=== PATIENT | female | born 1980 | race Two or more races ===

== ENCOUNTER 2017-04-04 13:14 | Emergency (ER) | payer BC ==
[2017-04-04] MEDS ORDERED: DEXAMETHASONE 10 MG/ML VIAL IVP ONE (13:24)
[2017-04-04] MEDS ORDERED: NS 1,000 ML IV ONE (13:24)
[2017-04-04] MEDS ORDERED: KETOROLAC 30 MG/1 ML SDV IVP ONE (13:24)
[2017-04-04] MEDS ORDERED: METOCLOPRAMIDE 10 MG/2 ML VIAL IVP ONE (13:24)
[2017-04-04 13:27] VITALS: RESP 18; TEMP 98; O2SAT 97
--- NOTE | 2017-04-04 13:49 | EDPHY ---
H & P Stated Complaint: c/o Migraine ALLISON since 07 Time Seen by Provider: 04/04/17 13:20 HPI/ROS: This patient reports gradual onset of headache at 7:00 a.m. this morning initially bifrontal in location now more prominent in the occiput, throbbing in nature, 8/10 intensity and worse with movement. This headache feels similar to prior migraine headaches. She has associated nausea. She also reports photophobia. She took a 1000 mg of Tylenol at 7:00 a.m. without significant improvement and notes no other exacerbating or alleviating factors. Her brought her in by private vehicle for further evaluation. ROS: No fevers or chills. HEENT: No URI symptoms. No sinus pain. No change in hearing. No sore throat. Neuro: No numbness tingling or focal weakness. She does report slight blurring of her vision which is also happen with prior migraines. No recent head trauma. Pulmonary: No complaints Cardiovascular: No complaints GI: Nausea but no vomiting. No abdominal pain : No complaints Integumentary: No skin rash 10 point ROS is otherwise negative. Source: Patient, Family Exam Limitations: Language barrier (The patient is [place]-speaking only but her translates) - Personal History LMP (Females 10-55): 1-7 Days Ago Current Tetanus Diphtheria and Acellular Pertussis (TDAP): Yes - Medical/Surgical History PMH: Migraine headaches with normal CT of the head here in 2016 Other PMH: denies - Social History Smoking Status: Never smoked Drug Use: None - Physical Exam Exam: Physical exam: Vital signs are normal General: Patient is in no acute distress. HEENT: Is no external evidence of trauma on exam. Nose atraumatic. Ears: Clear bilaterally with no hemotympanum. Oropharynx: No dental trauma or malocclusion. No intraoral lacerations. Eyes: Pupils are equal and reactive to light. Extraocular motions are intact. Optic fundi: Clear with no papilledema or hemorrhage. Lungs: Clear to auscultation bilaterally Neck: Supple no meningismus. Cardiac: Regular rate and rhythm no murmur gallop or rub. Abdomen: Soft nontender no organomegaly Neuro: GCS of 15. Cranial nerves II through XII intact. Cerebellar exam is normal as judged by symmetric rapid hand movements bilaterally. No pronator drift. No sensory or motor deficits are appreciated. Initial differential diagnosis: Migraine, tension headache, DELIVERER OUTSIDE lesion, intracranial bleed, sinusitis Constitutional: Initial Vital Signs Temperature (C) 36.6 C 04/04/17 13:24 Heart Rate 56 L 04/04/17 13:24 Respiratory Rate 18 04/04/17 13:24 Blood Pressure 139/94 H 04/04/17 13:24 O2 Sat (%) 97 04/04/17 13:24 O2 Delivery Mode Room Air Allergies/Adverse Reactions: No Known Allergies Allergy (Unverified 06/02/16 17:54) Home Medications: Medication Instructions Recorded Acet/Caffeine/Buta Fioricet 1 each PO Q6 #15 tab 06/02/16 [Fioricet (*)] Ondansetron Odt [Zofran Odt] 4 - 8 mg PO Q4PRN PRN #4 tab 04/04/17 SUMAtriptan [Imitrex 50 MG (RX)] 50 - 100 mg PO Q2H PRN #6 tab 04/04/17 Medical Decision Making ED Course/Re-evaluation: IV normal saline bolus Reglan, Benadryl, Toradol, Decadron IV At 2:34 p.m. on recheck the patient's pain has resolved. She feels well. Her visual blurring has resolved as well. She feels comfortable and requests to go home. Discussion: Given the patient's resolution of symptoms with migraine specific medications and lack of any neuro findings I do not think she has DELIVERER OUTSIDE infection , intracranial bleed or other the patient understands that she needs to return emergency department if she should have any significant recurrence despite medication plan of Imitrex ibuprofen Zofran for home. She will follow up with primary care physician - Data Points Medications Given: Discontinued Medications Dexamethasone (Decadron Injection) 10 mg IVP EDNOW ONE Stop: 04/04/17 13:25 Last Admin: 04/04/17 13:57 Dose: 10 mg Diphenhydramine HCl (Benadryl Injection) 25 mg IVP EDNOW ONE Stop: 04/04/17 13:25 Last Admin: 04/04/17 13:57 Dose: 25 mg Sodium Chloride (Ns) 1,000 mls @ 0 mls/hr IV ONCE ONE; Wide Open PRN Reason: Protocol Stop: 04/04/17 13:25 Last Admin: 04/04/17 13:40 Dose: 1,000 mls Ketorolac Tromethamine (Toradol) 30 mg IVP EDNOW ONE Stop: 04/04/17 13:25 Last Admin: 04/04/17 13:57 Dose: 30 mg Metoclopramide HCl (Reglan Injection) 10 mg IVP EDNOW ONE Stop: 04/04/17 13:25 Last Admin: 04/04/17 13:56 Dose: 10 mg Departure - Departure Disposition: Home, Routine, Self-Care Clinical Impression: Migraine headache Qualifiers: Migraine type: without aura Status migrainosus presence: without status migrainosus Intractability: not intractable Qualified Code(s): G43.009 - Migraine without aura, not intractable, without status migrainosus Condition: Good Instructions: Migraine Headache (ED) Additional Instructions: Diagnosis: Migraine headache Plan - Home to rest. Drink plenty fluids If you have recurrence of migraine-take ibuprofen-600 mg p. o., and Imitrex as prescribed. Zofran for nausea vomiting if needed Return for any significant worsening despite treatment plan Follow up with primary care physician for any ongoing symptoms. Referrals: [facility] [Other] - As per Instructions Prescriptions: Ondansetron Odt [Zofran Odt] 4 - 8 mg PO Q4PRN PRN #4 tab PRN Reason: Vomiting SUMAtriptan [Imitrex 50 MG (RX)] 50 - 100 mg PO Q2H PRN #6 tab PRN Reason: migraine
[2017-04-04 14:47] VITALS: BP 139/88; PULSE 62
== END 2017-04-04 14:44 | disposition home or self-care (01) ==
LOC: CED 13:14
DX: G43.009 Migraine without aura, not intractable, without status migrainosus (principal); E86.9 Volume depletion, unspecified
CPT/HCPCS: 96374; J1100; J1200; J1885; J2765

== ENCOUNTER 2017-10-27 20:04 | Emergency (ER) | payer BC ==
[2017-10-27] MEDS ORDERED: NS 1,000 ML IV ONE (20:28)
[2017-10-27] MEDS ORDERED: KETOROLAC 30 MG/1 ML SDV IVP ONE (20:28)
[2017-10-27] MEDS ORDERED: METOCLOPRAMIDE 10 MG/2 ML VIAL IVP ONE (20:28)
[2017-10-27] MEDS ORDERED: ACETAMINOPHEN 325 MG TAB PO ONE (20:28)
--- NOTE | 2017-10-27 21:35 | EDPHY ---
H & P Stated Complaint: Migraine Time Seen by Provider: 10/27/17 20:19 HPI/ROS: This patient developed onset of headache last night gradual in onset bilateral throbbing in nature occipital more than frontal steadily increasing in intensity. She took 400 mg of ibuprofen at 4:30 p.m. Without relief. She has tried Imitrex in the past with some improvement but is out of Imitrex and reports that the last time she used it did not work as well. She has associated photophobia and hyperacusis. She reports associated nausea but no vomiting. Her headache worsens with movement. This headache feels similar to prior migraines. She has associated scintillating scotoma. Her drove her here by private vehicle for further evaluation. ROS: No fevers or chills. No other constitutional symptoms HEENT: No URI symptoms. No sinus pain. No sore throat or ear pain. Neuro: No focal numbness tingling or weakness. Other symptoms as per HPI. No recent head injury. Pulmonary: No shortness of breath or cough Cardiovascular: No lightheadedness GI: Nausea but no vomiting. No abdominal pain. 7 point ROS is otherwise negative Source: Patient, Family, RN/MD Exam Limitations: Language barrier (Patient is Citizen [place]-speaking only but our nurse Courtney speaks [place] and the patient's spouse also speaks [place]) - Personal History LMP (Females 10-55): Now Current Tetanus/Diphtheria Vaccine: Yes Current Tetanus Diphtheria and Acellular Pertussis (TDAP): Yes - Medical/Surgical History Hx Asthma: No Hx Chronic Respiratory Disease: No Hx Diabetes: No Hx Cardiac Disease: No Hx Renal Disease: No Hx Cirrhosis: No Hx Alcoholism: No Hx HIV/AIDS: No Hx Splenectomy or Spleen Trauma: No Other PMH: migraines - Family History Significant Family History: No pertinent family hx - Social History Smoking Status: Never smoked Alcohol Use: None Drug Use: None - Physical Exam Exam: Physical exam: Vital signs are normal General: Patient is in no acute distress. HEENT: Is no external evidence of trauma on exam. Eyes: Pupils are equal and reactive to light. Extraocular motions are intact. Optic fundi: Clear with no papilledema or hemorrhage. Nose atraumatic. Ears: Clear bilaterally with no hemotympanum. Oropharynx: No dental trauma or malocclusion. No intraoral lacerations. Eyes: Pupils are equal and reactive to light. Extraocular motions are intact. Optic fundi: Clear with no papilledema or hemorrhage. Lungs: Clear to auscultation bilaterally Neck: Supple no meningismus. Cardiac: Regular rate and rhythm no murmur gallop or rub. Abdomen: Soft nontender no organomegaly Neuro: GCS of 15. Cranial nerves II through XII intact. Cerebellar exam is normal as judged by symmetric rapid hand movements bilaterally. No pronator drift. No sensory or motor deficits are appreciated. Initial differential diagnosis: Migraine, tension headache, EGG SORTER lesion, intracranial bleed Constitutional: Initial Vital Signs Temperature (C) 36.8 C 10/27/17 20:31 Heart Rate 60 10/27/17 20:31 Respiratory Rate 20 10/27/17 20:31 Blood Pressure 146/97 H 10/27/17 20:31 O2 Sat (%) 96 10/27/17 20:31 O2 Delivery Mode Room Air Allergies/Adverse Reactions: No Known Allergies Allergy (Verified 10/27/17 20:29) Home Medications: Medication Instructions Recorded Acet/Caffeine/Buta Fioricet 1 each PO Q6 #15 tab 06/02/16 [Fioricet (*)] Ondansetron Odt [Zofran Odt] 4 - 8 mg PO Q4PRN PRN #4 tab 04/04/17 SUMAtriptan [Imitrex 50 MG (RX)] 50 - 100 mg PO Q2H PRN #6 tab 04/04/17 Rizatriptan Benzoate [Maxalt] 10 mg PO Q2 #9 tablet 10/27/17 Medical Decision Making ED Course/Re-evaluation: IV normal saline bolus Toradol 15 mg, Reglan 10 mg, 25 mg of Benadryl and Tylenol 975 p.o. with complete resolution of her headache. On recheck prior to discharge patient feels improved. She has no nausea no headache. Her scintillating scotoma resolved. She has no new neuro symptoms or other complaints. Discussion: Findings consistent with migraine headache associated with or of scintillating scotoma improved with treatment. Given her improvement and lack of red flag findings, I do not think she has EGG SORTER infection, EGG SORTER bleed or other red flag findings. However the, the patient understands need to return emergency department should she develop worsening symptoms. She will follow up with Neurology for any ongoing symptoms with plan to discharge her on a trial of Maxalt and Zofran if symptoms recur - Data Points Medications Given: Discontinued Medications Acetaminophen (Tylenol) 975 mg PO EDNOW ONE Stop: 10/27/17 20:29 Last Admin: 10/27/17 20:47 Dose: 975 mg Diphenhydramine HCl (Benadryl Injection) 25 mg IVP EDNOW ONE Stop: 10/27/17 20:29 Last Admin: 10/27/17 20:48 Dose: 25 mg Sodium Chloride (Ns) 1,000 mls @ 0 mls/hr IV ONCE ONE; Wide Open PRN Reason: Protocol Stop: 10/27/17 20:29 Last Admin: 10/27/17 20:48 Dose: 1,000 mls Ketorolac Tromethamine (Toradol) 15 mg IVP EDNOW ONE Stop: 10/27/17 20:29 Last Admin: 10/27/17 20:48 Dose: 15 mg Metoclopramide HCl (Reglan Injection) 10 mg IVP EDNOW ONE Stop: 10/27/17 20:29 Last Admin: 10/27/17 20:48 Dose: 10 mg Departure - Departure Disposition: Home, Routine, Self-Care Clinical Impression: Nausea Migraine Qualifiers: Migraine type: with aura Status migrainosus presence: with status migrainosus Intractability: not intractable Qualified Code(s): G43.101 - Migraine with aura , not intractable, with status migrainosus Condition: Good Instructions: Migraine Headache (ED), Acute Nausea and Vomiting (ED) Additional Instructions: Diagnosis: Migraine 2. Nausea Plan: Home to rest. He developed recurrent migraine, try ibuprofen-600 mg, and Maxalt. Also consider some caffeine. Zofran if needed for nausea Follow up with primary care physician or with neurologist-number provided below Return for any significant worsening despite the treatment plan. Referrals: Willow Adler DO [Primary Care Provider] - As per Instructions Prescriptions: Rizatriptan Benzoate [Maxalt] 10 mg PO Q2 #9 tablet
[2017-10-27 21:54] VITALS: BP 146/92
== END 2017-10-27 21:54 | disposition home or self-care (01) ==
LOC: CED 20:04
DX: G43.101 Migraine with aura, not intractable, with status migrainosus (principal); E86.9 Volume depletion, unspecified
CPT/HCPCS: 96374; J1200; J1885; J2765